=== PATIENT | male | born 1985 | race Caucasian/White ===

== ENCOUNTER 2016-11-11 18:36 | Emergency (ER) | payer MEDICAID, OTHER ==
[2016-11-11 18:55] VITALS: BP 154/86
--- NOTE | 2016-11-11 19:08 | EDM.PDOC ---
ED HPI GENERAL MEDICAL PROBLEM - General Chief Complaint: Skin Complaint Stated Complaint: POSION RANDALL Time Seen by Provider: 11/11/16 18:52 Source of Information: Reports: Patient History Limitations: Reports: No Limitations - History of Present Illness INITIAL COMMENTS - FREE TEXT/NARRATIVE: 31 years old male patient presented with chief complaint of skin rash started today [place] on both lower extremity, intra-abdominal wall. History of poison randall. It think it is poison randall again. Itchy and burning. Denies any chest pain or shortness breath. Denies any wheezing. Denies any recent medication or food or detergent or soap Onset: Today Severity: Moderate - Related Data Allergies Allergy/AdvReac Type Severity Reaction Status Date / Time sulfa Allergy Anaphylactic Uncoded 11/11/16 18:52 Shock Home Meds: Home Meds NK [No Known Home Meds] 11/11/16 [History] Past Medical History - Past Surgical History Musculoskeletal Surgical History: Reports: Other (See Below) Other Musculoskeletal Surgeries/Procedures:: compartment syndrome bilat legs Social & Family History - Tobacco Use Smoking Status *Q: Never Smoker - Caffeine Use Caffeine Use: Reports: None - Alcohol Use Days Per Week of Alcohol Use: 1 Number of Drinks Per Day: 2 Total Drinks Per Week: 2 - Recreational Drug Use Recreational Drug Use: No ED ROS GENERAL - Review of Systems Review Of Systems: ROS reveals no pertinent complaints other than HPI. ED EXAM, SKIN/RASH Exam: See Below Exam Limited By: No Limitations General Appearance: Alert, WD/WN, No Apparent Distress Throat/Mouth: Normal Inspection, Normal Lips, Normal Teeth, Normal Gums, Normal Oropharynx, Normal Voice, No Airway Compromise Neck: Normal Inspection, Supple, Non-Tender, Full Range of Motion Respiratory/Chest: No Respiratory Distress, Lungs Clear, Normal Breath Sounds, No Accessory Muscle Use, Chest Non-Tender Cardiovascular: Normal Peripheral Pulses, Regular Rate, Rhythm, No Edema, No Gallop, No JVD, No Murmur, No Rub Skin: Warm, Rash (Eczematous, erythematous rash mainly on both sides of the knee. Thigh area. Slightly on his anterior abdomen wall. Scratch mars.). No: No Rash Course - Vital Signs Last Recorded V/S: Last Vital Signs Temp 37 C 11/11/16 18:53 Pulse 88 11/11/16 18:53 Resp 15 11/11/16 18:53 BP 154/86 H 11/11/16 18:53 Pulse Ox 95 11/11/16 18:53 - Orders/Labs/Meds Meds: Medications Discontinued Medications Generic Name Dose Route Start Last Admin Trade Name Marina PRN Reason Stop Dose Admin Prednisone 40 mg 11/11/16 19:11 11/11/16 19:18 Prednisone PO 11/11/16 19:12 40 mg ONETIME ONE Administration - Re-Assessments/Exams Free Text/Narrative Re-Assessment/Exam: 11/11/16 19:53 Patient was seen and examined shortly after arrival. Stable. Was given 40 mg oral prednisone. Given a prescription for 5 day course of prednisone burst and Kenalog cream. Advised to come back symptom motion. Vision agrees with the plan. Stable for discharge Departure - Departure Time of Disposition: 19:56 Disposition: Home, Self-Care 01 Condition: Good Clinical Impression: Atopic dermatitis, Contact dermatitis, Contact dermatitis due to poison randall - Discharge Information Instructions: Poison Randall Dermatitis, [id number] Referrals: PCP,None [Primary Care Provider] - Forms: ED Department Discharge - Assessment/Plan Plan: Patient was seen and examined shortly after arrival. Stable. Was given 40 mg oral prednisone. Given a prescription for 5 day course of prednisone burst and Kenalog cream. Advised to come back symptom motion. Vision agrees with the plan. Stable for discharge
[2016-11-11] MEDS ORDERED: predniSONE 20 MG Tab PO ONE (19:11)
== END 2016-11-11 20:03 | disposition home or self-care (01) ==
LOC: JP.ED 18:36
DX: L20.9 Atopic dermatitis, unspecified (principal); L25.5 Unspecified contact dermatitis due to plants, except food; Z88.2 Allergy status to sulfonamides
CPT/HCPCS: 99283; A9270